=== PATIENT | female | born 1975 | race Caucasian/White ===

== ENCOUNTER → 2021-02-17 | Outpatient (CLI) | payer OTHER ==
--- NOTE | 2021-02-17 13:04 | RAD ---
XR SHOULDER_RIGHT 2+ VIEWS DATE: 02/17/2021 10:56 AM INDICATION: RIGHT SHOULDER INJURY, PAIN AFTER PULLING/LIFTING A PATIENT COMPARISON: None. FINDINGS: Bones: There is no evidence of acute fracture or dislocation. Joints: Mild degenerative changes of the acromioclavicular joint. Glenohumeral joint is congruent. T he acromiohumeral distance is not narrowed. Miscellaneous: No abnormal soft tissue calcifications in the shoulder. IMPRESSION: No evidence of acute fracture. Electronically signed by: Joseph Reyez MD (02/17/2021 1:02 PM) [id number]
== END ==
LOC: RAD 10:51
PROVIDERS: ATTEND Physician Assistant
DX: M25.511 Pain in right shoulder (principal)
CPT/HCPCS: 73030